=== PATIENT | female | born 1950 | race Caucasian/White ===

== ENCOUNTER 2020-07-31 07:25 | Observation (INO) ==
[~2020-07-31 07:25] MED LIST: Buffered Lidocaine 1% SYRIN 1 ml INTRADERM ONE; Lactated Ringers 1000 ml BAG 1,000 ML IV SCH
[2020-07-31] MEDS ORDERED: ceFAZolin 2 GM PREMIX 2 GM/50 ML BAG ONE (09:01)
[2020-07-31] MEDS ORDERED: Buffered Lidocaine 1% SYRIN 1 ml INTRADERM ONE (09:01)
[2020-07-31] MEDS ORDERED: Dexmedetomidine 200 mcg/2 ml 2 ml VIAL (200 mcg) ONE (09:35)
[2020-07-31] MEDS ORDERED: Midazolam 2 mg/2 ml VIAL 1 mg/ml 2 ml VIAL (2 mg) ONE ×2 (09:35→10:25)
[2020-07-31] MEDS ORDERED: Propofol 10 MG/ML 20 ML BTL ONE ×2 (09:35→11:30)
[2020-07-31] MEDS ORDERED: DiMENhydriNATE IV 50 mg/ml 1 ml VIAL IV PUSH PRN (09:38)
[2020-07-31] MEDS ORDERED: oxyCODONE/Acetamin 5/325 mg TAB PO PRN (09:38)
[2020-07-31] MEDS ORDERED: Ondansetron 4 mg VIAL 2 MG/ML 2 ml VIAL IV PRN ×2 (09:38→11:24)
[2020-07-31] MEDS ORDERED: fentaNYL 100 mcg/2 ml 50 MCG/ML VIAL IV PRN (09:38)
[2020-07-31] MEDS ORDERED: Naloxone 0.4 mg VIAL 0.4 mg/ml 1 ml VIAL IV PRN (09:38)
[2020-07-31] MEDS ORDERED: Ketamine HCL 50 mg/ml 10 ml VIAL (500 MG) ONE (10:48)
[2020-07-31] MEDS ORDERED: Morphine 2 MG/ML SYRINGE IV PRN (11:24)
[2020-07-31] MEDS ORDERED: diPHENhydraMINE 25 mg TAB PO PRN (11:24)
[2020-07-31] MEDS ORDERED: Lactulose 30 ml UDC PO PRN (11:24)
[2020-07-31] MEDS ORDERED: Magnesium Hydroxide LIQ 30 ML UDC PO PRN (11:24)
[2020-07-31] MEDS ORDERED: diPHENhydraMINE IV 50 MG/ML 1 ml VIAL (BENADRYL) IV PRN (11:24)
[2020-07-31] MEDS ORDERED: Ondansetron ODT 4 mg TAB 4 MG TAB PO PRN (11:24)
[2020-07-31] MEDS ORDERED: Lactated Ringers 1000 ml BAG 1,000 ML IV SCH (12:00)
[2020-07-31] MEDS ORDERED: Phenylephrine 40 mcg/mL 10mL (400mcg) SYRINGE ONE (12:01)
[2020-07-31] MEDS ORDERED: EPHEDrine (Pressors) 50 MG/ML VIAL ONE (12:18)
[2020-07-31] MEDS ORDERED: oxyCODONE/Acetamin 5/325 mg TAB ONE (13:07)
[2020-07-31] MEDS ORDERED: fentaNYL 100 mcg/2 ml 50 MCG/ML VIAL ONE (14:06)
[2020-07-31] MEDS: ceFAZolin 1 GM ADVAN 1 GM in NS 0.9% 50 ML 50 ML IVPB SCH (18:32)
[2020-07-31] MEDS: Latanoprost 0.005% 2.5 ml BTL BOTH EYES SCH (18:33)
[2020-07-31] MEDS: Phenytoin 100 mg ER CAP PO SCH (21:11)
[2020-07-31] MEDS: Magnesium Hydroxide LIQ 30 ML UDC PO SCH (21:12)
[2020-07-31] MEDS: CMCS:Brimonidine/Timolol 0.2%/0.5% OPTH(NF) SOL 5 ML BOTH EYES SCH (21:12)
[2020-08-01] MEDS: ceFAZolin 1 GM ADVAN 1 GM in NS 0.9% 50 ML 50 ML IVPB SCH ×2 (02:00→11:01)
[2020-08-01] MEDS ORDERED: NS 0.9% 500 ml BAG 500 ML IV ONE ×2 (03:58→11:41)
[2020-08-01 06:29] LABS: Hematocrit 27 % (35-47); Hemoglobin 9.4 g/dL (12.0-16.0); Mean Platelet Volume 7.2 fL (7.4-10.4); Platelet Count 165 10^3/uL (150-450)
[2020-08-01 06:45] LABS: Calcium 7.9 mg/dL (8.6-10.3); EGFR African American 135.8 (>60); EGFR Non-African American 112.3 (>60); Potassium 3.9 mmol/L (3.5-5.0)
[2020-08-01] MEDS: Vitamin THERAPEUTIC TAB PO SCH (08:10)
[2020-08-01] MEDS: Magnesium Hydroxide LIQ 30 ML UDC PO SCH ×2 (08:11→20:57)
[2020-08-01] MEDS: CMCS:Brimonidine/Timolol 0.2%/0.5% OPTH(NF) SOL 5 ML BOTH EYES SCH ×2 (08:11→20:54)
[2020-08-01] MEDS: Enoxaparin 30 MG/0.3 ML SYR SUBCUT SCH (11:04)
[2020-08-01] MEDS: Lactated Ringers 1000 ml BAG 1,000 ML IV SCH (15:30)
[2020-08-01] MEDS: Latanoprost 0.005% 2.5 ml BTL BOTH EYES SCH (17:35)
[2020-08-01] MEDS: Phenytoin 100 mg ER CAP PO SCH (20:55)
[2020-08-02] MEDS: Lactated Ringers 1000 ml BAG 1,000 ML IV SCH (03:35)
[2020-08-02 08:14] LABS: ABS Eosinophils 0.1 10^3/ul (0-0.6); ABS Lymphocytes 0.7 10^3/ul (1.0-4.8); ABS Monocytes 0.5 10^3/ul (0-0.8); ABS Neutrophils 5.6 10^3/ul (1.5-7.7); Hematocrit 25 % (35-47); Hemoglobin 8.4 g/dL (12.0-16.0); Lymphocyte % 9.8 %; Mean Corpuscular HGB Conc 34 g/dL (31-36); Mean Corpuscular Hemoglobin 32 pg (27-31); Mean Corpuscular Volume 93 fL (80-97); Mean Platelet Volume 7.1 fL (7.4-10.4); Platelet Count 172 10^3/uL (150-450); Red Blood Count 2.65 10^6 /uL (3.70-4.87); Red Cell Distribution Width 14 % (10-15); White Blood Count 6.8 10^3/uL (3.5-10.8)
[2020-08-02 08:31] LABS: Calcium 8.2 mg/dL (8.6-10.3); EGFR African American 155.6 (>60); EGFR Non-African American 128.6 (>60); Potassium 3.8 mmol/L (3.5-5.0)
[2020-08-02] MEDS: CMCS:Brimonidine/Timolol 0.2%/0.5% OPTH(NF) SOL 5 ML BOTH EYES SCH (09:00)
[2020-08-02] MEDS: Vitamin THERAPEUTIC TAB PO SCH (09:00)
[2020-08-02] MEDS: Magnesium Hydroxide LIQ 30 ML UDC PO SCH (09:01)
[2020-08-02] MEDS: Enoxaparin 30 MG/0.3 ML SYR SUBCUT SCH (11:33)
[2020-08-02 11:36] VITALS: BP 117/71
== END 2020-08-02 12:20 | disposition home or self-care (01) ==
LOC: OR 07:25 → SSU 07:25 → EDSTATUS 11:00 → SSU 17:31
PROVIDERS: ADMIT Orthopaedic Surgery Adult Reconstructive Orthopaedic Surgery; ATTEND Orthopaedic Surgery Adult Reconstructive Orthopaedic Surgery